=== PATIENT | male | born 1985 | race Two or more races ===

== ENCOUNTER 2018-01-04 11:11 | Emergency (ER) | payer SELFPAY ==
[~2018-01-04] VITALS: Ht 188 cm; Wt 158.8 kg
[2018-01-04 12:06] LABS: UA SPECIFIC GRAVITY 1.025 (1.005-1.035); microscopic required? YES; urine erythrocyte 3+ (NEGATIVE)
[2018-01-04 12:18] LABS: AMPHETAMINE QUAL UR NONE DETECTED (NEG <=1000); BASOPHIL % 0.3 % (0-2); PLATELET COUNT 292 x10^3mcL (130-400); RED CELL DISTRIBUTION WIDTH 14.1 % (11.5-14.5)
[2018-01-04 12:19] LABS: CALCIUM 8.7 mg/dL (8.5-10.1); CARBON DIOXIDE 22.2 mmol/L (21-32); CHLORIDE SERUM 105 mmol/L (98-107); CREATININE SERUM 0.9 mg/dL (0.7-1.3); GFR1 > 60 mL/min; GLUCOSE SERUM 171 mg/dL (74-106); POTASSIUM SERUM 3.9 mmol/L (3.5-5.1); SODIUM SERUM 140 mmol/L (136-145)
[2018-01-04 12:23] LABS: ALBUMIN 3.6 g/dL (3.4-5.0); ALKALINE PHOSPHATASE 59 U/L (46-116); ALT/SGPT 72 U/L (16-63); AMYLASE 69 U/L (25-115); AST/SGOT 52 U/L (15-37); BILIRUBIN TOTAL 0.54 mg/dL (0.20-1.00); LIPASE 145 IU/L (73-393)
[2018-01-04 14:15] VITALS: BP 148/89
== END 2018-01-04 14:16 | disposition home or self-care (01) ==
LOC: ED 11:11
PROVIDERS: Emergency Medicine
DX: F12.90 Cannabis use, unspecified, uncomplicated (principal); E66.01 Morbid (severe) obesity due to excess calories
CPT/HCPCS: 83880; J1630; J1885; J2060; J3490; J7030